=== PATIENT | female | born 1970 | race Two or more races ===

== ENCOUNTER 2025-02-17 21:01 | Emergency (ER) | payer MEDICAID, SELFPAY ==
--- NOTE | 2025-02-17 21:06 | EKG_ITS ---
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: : 1970 Requested By: ED Temporary Provider Order Number: [id number] Reading MD: ED Temporary Provider Measurements Intervals [place] Rate: 109 P: 19 OK: 152 QRS: -32 QRSD: 79 T: 42 QT: 333 QTc: 450 Interpretive Statements SINUS TACHYCARDIA POSSIBLE LEFT ATRIAL ENLARGEMENT [-0.1mV P-WAVE IN V1/V2] LEFT AXIS DEVIATION [QRS AXIS < -30] LOW QRS VOLTAGE IN PRECORDIAL LEADS [QRS DEFLECTION < 1.0 mV IN CHEST LEADS] ANTEROSEPTAL MYOCARDIAL INFARCTION , OF INDETERMINATE AGE [40+ ms Q WAVE IN V1-V4] Compared to ECG 06/15/2023 12:58:18 Sinus rhythm no longer present Myocardial infarct finding still present /store/S0/[id number].pdf
[2025-02-17 21:28] VITALS: BP 124/89; PULSE 110; RESP 15; TEMP 37.4; O2SAT 98
--- NOTE | 2025-02-17 21:46 | XR_ITS ---
Examination: PA chest single view TECHNIQUE: Upright PA chest single view INDICATIONS: Right-sided chest pain beginning 2 days ago Exam date and time: February 17, 2025 2152 hours FINDINGS: Normal heart size No pneumothorax No pneumonia or pulmonary edema The osseous structures are intact IMPRESSION: No active disease
--- NOTE | 2025-02-17 21:47 | PD.EDRME ---
Rapid Medical Screening Exam [facility] Arrival date/time: 02/17/25 21:01 54F with history of DM, HTN, and anxiety presents to ED with 2 days of R-sided CP, dizziness, and possible dysuria. Patient denies URI symptoms. Chief Complaint: Chest Pain Vital signs: Vital Signs Temperature 99.3 F 02/17/25 21:28 Pulse Rate 110 H 02/17/25 21:28 Respiratory Rate 15 02/17/25 21:28 Blood Pressure 124/89 H 02/17/25 21:28 Pulse Oximetry (%) 98 02/17/25 21:28 Oxygen Delivery Method Room Air 02/17/25 21:28
[2025-02-17 22:15] LABS: Collection Type, Urine Clean Catch
[2025-02-17 22:16] LABS: Basophils % (Auto) 0 % (0-2.5); Eosinophils % (Auto) 0 % (0-10); Hematocrit 41.5 % (36.0-46.0); Hemoglobin 14.8 g/dL (12.0-16.0); Immature Granulocytes % (Auto) 0 % (0-0); Immature Granulocytes Auto 0.05 Thou/mm3 (0.00-0.00); Lymphocytes % (Auto) 8 % (10-50); Mean Corpuscular HGB Conc 35.7 g/dl (31.0-37.0); Mean Corpuscular Hemoglobin 30.1 pg (25.0-35.0); Mean Corpuscular Volume 85 fL (80-100); Monocytes # (Auto) 0.5 Thou/mm3 (0.0-0.8); Monocytes % (Auto) 3 % (0-12); Neutrophils # (Auto) 12.1 Thou/mm3 (1.8-7.7); Neutrophils % (Auto) 88 % (37-80); Nucleated Red Blood Cell % 0 /100 WBC (0); Platelet Count 370 Thou/mm3 (140-440); RDW Standard Deviation 36.1 fL (36.4-46.3); Red Blood Count 4.91 Miln/mm3 (4.00-5.20); White Blood Count 13.7 Thou/mm3 (3.6-11.0)
[2025-02-17 22:21] LABS: Bacteria,Urine Rare; Bilirubin,Urine Negative (Negative); Blood,Urine Negative (Negative); Clarity,Urine Clear (Clear/Hazy); Color,Urine Lt-Yellow (Lt Yel-Yel); Culture Indicated,Urine Not Indicated; Glucose, Urine 4+ (Negative); Ketones,Urine 4+ (Negative); Leukocyte Esterase,Urine Negative (Negative); Nitrite,Urine Negative (Negative); PH,Urine 5.5 (5.0-7.0); Protein,Urine Trace (Neg - Trace); RBC,Urine 4 /hpf (0-3); Specific Gravity,Urine 1.038 (1.001-1.035); Squamous Epithelial Cell,Urine 3 /hpf (0-5); Urobilinogen,Urine Negative mg/dL (0.0-1.0); WBC,Urine 5 /hpf (0-5)
[2025-02-17 22:25] VITALS: BP 145/77; PULSE 107; RESP 20; TEMP 37.4; O2SAT 95
[2025-02-17 22:34] LABS: B-Type Natriuretic Peptide < 20 pg/mL (0-100)
[2025-02-17 22:36] LABS: Alanine Aminotransferase 19 U/L (10-49); Albumin, Serum 4.3 gm/dL (3.5-5.0); Albumin/Globulin Ratio 1.9 (1.2-2.2); Alkaline Phosphatase 87 U/L (46-116); Anion Gap 9 (7-16); Aspartate Amino Transferase 20 U/L (0-34); BUN/Creatinine Ratio 18 Ratio (12-20); Blood Urea Nitrogen 11 mg/dL (9-23); Calcium 8.5 mg/dL (8.3-10.6); Calcium (Corrected) 8.5 mg/dL (8.5-10.1); Carbon Dioxide 24.9 mMol/L (20.0-31.0); Chloride 99 mMol/L (98-107); Creatinine (Component) 0.6 mg/dL (0.6-1.3); Globulin 2.3 gm/dL (2.3-3.5); Glucose 284 mg/dL (74-106); Osmolality,Calculated 275 (275-295); Potassium 3.8 mMol/L (3.4-5.1); Sodium 133 mMol/L (136-145); Total Protein 6.6 gm/dL (5.7-8.2); Troponin I < 0.002 ng/mL (0.0-0.045); eGFR > 60 See Note
--- NOTE | 2025-02-18 00:17 | PD.EDABDPN ---
ED Abdominal Pain RME/HPI General Chief Complaint: Chest Pain Stated complaint: RIGHT CHEST /RIGHT ABD AREA PAIN , SOB Arrival date/time: 02/17/25 21:01 RME / HPI RME / HPI narrative: 02/17/25 21:01 54F with history of DM, HTN, and anxiety presents to ED with 2 days of R-sided CP, dizziness, and possible dysuria. Patient denies URI symptoms. DR. THOMSON MAIN ED EVALUATION: 54 y/o female with Hx of Diverticulitis and Diabetes Mellitus Type 2 presents to ED c/o intermittent RLQ abdominal pain and weakness x 1 week. Also reports loss of appetite, nausea, vomiting, and change in bowel movements x 1 day. She had dysuria 4 days ago but has since resolved. Denies abdominal surgeries in the past and international travel. Admits to sick contacts at her confucianism some time ago. Denies runny nose, hematuria, and chest pain. Also denies drugs, alcohol use, and smoking. No other concerns or complaints expressed at this time. Related Data Home Medications ?Medication ?Instructions ?Recorded ?Confirmed sitagliptin phosphate 50 1 tab PO BID 06/02/19 05/24/22 mg-metformin 1,000 mg tablet (Janumet) empagliflozin 10 mg tablet 10 mg PO QDAY 05/24/22 05/24/22 (Jardiance) semaglutide 0.25 mg or 0.5 mg (2 0.25 mg subcut QWEEK 05/24/22 05/24/22 mg/1.5 mL) subcutaneous pen injector (Ozempic) Previous Rx's ?Medication ?Instructions ?Recorded meloxicam 7.5 mg tablet 7.5 mg PO QDAY #10 tabs 06/15/23 Allergies Allergy/AdvReac Type Severity Reaction Status Date / Time No Known Allergies Allergy Verified 02/17/25 21:03 Review of Systems Review of Systems Systems Reviewed: All systems reviewed, normal except as documented Past Medical History Past Medical History CARDIAC: Positive Cardiac Disorders, Hypercholesterolemia and Hypertension GASTROINTESTINAL: Positive Gastrointestinal Disorders and Diverticulitis ENDOCRINE: Positive Diabetes Mellitus Type 2 ED Exam Narrative Physical exam: GEN. APPEARANCE: The patient is alert awake oriented X-3 in no distress, lying down comfortably, appears ill, but not toxic. Patient has good eye contact. Patient is cooperative. VITALS: All vitals were reviewed and the pulse ox is 95% on room air which is normal according to my interpretation. HEENT: Normocephalic, atraumatic. Pupils are equal and reactive. Oral mucosa is moist. Patent Nares NECK: Supple, nontender, no thyromegaly, no meningismus, no JVD CHEST: Symmetrical, atraumatic, and with equal expansion , Nontender on palpation no deformity and no crepitus. CARDIOVASCULAR: Heart regular rhythm no murmur or gallop rub or extra beats. LUNGS: Clear to auscultation bilaterally with symmetrical chest rise. No laboring tachypnea or wheezing. No intercostal subcostal retraction. No rales and no rhonchi. ABDOMEN: Soft, flat, nontender to palpation, no guarding or rebound tenderness. There are no abnormal masses palpated. Active and normal bowel sounds. EXTREMITIES: Nontender. No edema. No cyanosis. Patient is able to move all 4 extremities well, with full ROM and good CSM. SKIN: Warm and dry, no jaundice or rashes noted. MUSCULOSKELETAL: BL upper scapular TTP. NEURO: Patient is TALAMANTES x 4, Cranial nerves II through XII grossly intact. There is no focal neurologic deficits noted. GCS is 15, PNS and [employer] HAND appear grossly intact. PSYCHIATRIC: Patient is in normal mood and affect. Course Course Course Narrative: CXR is ordered for determining the etiology of chest pain. Quality Measures none Orders Category Date Time Status CT Screening NOW Care 02/18/25 00:29 Active EKG (ED ONLY) *Do not use* NOW Care 02/17/25 21:06 Completed IV [Insert IV] STAT Care 02/17/25 22:[address] abdomen pelvis w con Stat Exams 02/18/25 00:29 Taken EKG (ED Only) Stat Exams 02/17/25 21:06 Draft KUB [XR abdomen 1V] Stat Exams 02/18/25 00:18 Taken US pelvic complete Stat Exams 02/18/25 05:09 Ordered XR chest 1V portable Stat Exams 02/17/25 21:46 Completed B-Type Natriuretic Peptide Stat Lab 02/17/25 22:10 Completed CBC Stat Lab 02/17/25 22:10 Completed Comprehensive Metabolic Panel Stat Lab 02/17/25 22:10 Completed HCG Qualitative,Urine Stat Lab 02/17/25 22:03 Completed Troponin I Stat Lab 02/17/25 22:10 Completed Urinalysis, C/S if Indicated Stat Lab 02/17/25 22:03 Completed Ondansetron Inj [Zofran Inj] Med 02/18/25 00:19 Discontinued 4 mg IVP X1 ONE Ringers Lactated 1000 ml [Lactated Ringers] 1,000 ml Med 02/18/25 00:18 Discontinued IV 999 mls/hr cefTRIAXone/D5w 1gm IV premix [Rocephin/D5w 1gm IV Med 02/18/25 05:12 Discontinued premix] 1 gm in 50 ml IV X1 metroNIDAZOLE/NS 500 MG IVPB [Flagyl 500 mg IV] Med 02/18/25 05:12 Discontinued 500 mg in 100 ml IV NOW Vital Signs Vital signs: Vital Signs Temperature 99.3 F 02/17/25 21:28 Pulse Rate 110 H 02/17/25 21:28 Respiratory Rate 15 02/17/25 21:28 Blood Pressure 124/89 H 02/17/25 21:28 Pulse Oximetry (%) 98 02/17/25 21:28 Oxygen Delivery Method Room Air 02/17/25 21:28 Abdominal Pain MDM MDM Narrative MDM Narrative:: Scribe Attestation: Melinda Cox am scribing for and in the presence of Dr. Thomson. Provider Notation: Although this document has been carefully reviewed, there may still be some phonetic and other typographical errors.? These errors are purely grammatical due to imperfections in the software program and should not be construed in any way to? compromise the substance of the patient's medical care during this visit. Patient is a 52-year-old female to the [facility] with concerns for right lower quadrant abdominal pain. Vital signs and exam as above. Concern for constipation, appendicitis, diverticulitis, pancreatitis among others. Ordered labs, KUB as well as CT abdomen pelvis with contrast. 0004: WBC 13.7 with 88% left shift. No significant metabolic abnormality Hyperglycemic with glucose of 284. Anion Gap unremarkable. Troponin not elevated. Urine glucose and ketones present with RBC and rare bacteria. CXR is normal. 5:14a on reevaluation patient hemodynamically stable not in distress. CT abdomen pelvis shows diverticulitis, antibiotics provided. Patient also with constipation. Also has an ovarian cyst, pelvic ultrasound ordered. Also concern for possible early bowel obstruction versus enteritis. At this time patient abdomen soft nondistended nontender, no rebound or guarding, patient is having bowel movements and passing gas, less likely bowel obstruction at this time. 0600: Care assumed by Dr. Berg (emergency physician). Past medical, surgical, social and family history reviewed. Vitals and home medications reviewed. Results and treatment plan discussed. They will assume the care of the patient at this time and will follow the patient, pending US and Abdomen x-ray. Patient data External records reviewed:: [facility] previous records (Reviewed prior ED records from 11/26/23. Patient was seen for Chipped tooth.) Clinical information provided by:: patient Social determinants that could affect healthcare access:: none Patient has the following chronic illnesses:: Hypercholesterolemia, Hypertension, Diverticulitis, Diabetes Mellitus Type 2 How is presenting disease/condition affected by chronic disease/condition?: exacerbated by Evaluation data The following diagnostics were reviewed and interpreted by me:: lab results, radiology exam(s) and EKG tracing(s) (EKG done at 2132, sinus tachycardia, rate of 109, normal intervals, non-specific T-wave changes, not cardiac alert.) Lab and/or radiology exams considered but not ordered:: None Interpretation Summary: RADIOLOGY Chest X-Ray: FINDINGS: Normal heart size No pneumothorax No pneumonia or pulmonary edema The osseous structures are intact IMPRESSION: No active disease Abdomen/Pelvis CT: Findings: The lung bases are clear. The gallbladder, pancreas, spleen, kidneys and adrenals are unremarkable. Hepatomegaly Dilated small bowel loops measuring up to 3.3 cm with air-fluid levels within and transition point in the left abdomen. Diverticulosis of the colon. Thickening of the descending colon associated with mild peripheral fat stranding. The appendix is within normal limits. There is no mesenteric or retroperitoneal adenopathy. The urinary bladder is unremarkable. There is no free fluid or free air. The osseous structures are unremarkable. Left ovarian cystic lesion measuring 2.5 cm. Impression: Descending colon findings are compatible with diverticulitis versus colitis. Small bowel findings are compatible with enteritis versus developing small bowel obstruction. No evidence of appendicitis. Left ovarian cystic lesion, probably functional. Consider correlation with pelvic ultrasound if clinically indicated. Hepatomegaly. KUB X-Ray: Pending official radiology report. Medications / Prescriptions Medications or Prescriptions considered but not ordered:: None Medication administrations:: Medication Administration History Discontinued Medications Lactated Ringer's (Lactated Ringers) 1,000 mls @ 999 mls/hr IV .Q1H1M ONE Stop: 02/18/25 01:18 Last Infusion: 02/18/25 02:12 Dose: Infused Documented By: Admin: 02/18/25 01:05 Dose: 999 mls/hr Documented By: SALAZAR Ceftriaxone Sodium/Dextrose (Rocephin/D5w 1gm Iv Premix) 1 gm in 50 mls @ 100 mls/hr IV X1 ONE Stop: 02/18/25 05:41 Last Admin: 02/18/25 05:46 Dose: 100 mls/hr Documented By: SALAZAR Metronidazole (Flagyl 500 Mg Iv) 500 mg in 100 mls @ 200 mls/hr IV NOW ONE Stop: 02/18/25 05:41 Last Admin: 02/18/25 05:46 Dose: 200 mls/hr Documented By: SALAZAR Ondansetron HCl (Ondansetron Inj 2 Mg/Ml Inj 2 Ml) 4 mg IVP X1 ONE; Protocol Stop: 02/18/25 00:20 Last Admin: 02/18/25 01:04 Dose: 4 mg Documented By: SALAZAR See above if any Consultations Consultation(s) initiated? (list below): No Diagnosis Differential diagnosis abdominal pain: abdominal pain, acute appendicitis, calculus of kidney, constipation, diverticulitis, gastroenteritis, pancreatitis and small bowel obstruction Most likely diagnosis given after review of the tests above:: Diverticulitis, Leukcytosis, RLQ abdominal pain, Constipation Admission Indicated Admission indicated?: not indicated Explain why admission is indicated or not indicated:: Pending US and final disposition from oncoming ED physician. Admission Request Was there a request for admission?: No Disposition Plan Disposition Plan: other (specify) (Signed-out t Dr. Berg at 6 AM.) Discharge Plan Prescriptions/Referrals Prescriptions/Med Rec: No Action Janumet 50-1,000 mg Tablet 1 tab PO BID Jardiance 10 mg Tablet 10 mg PO QDAY Ozempic 0.25 mg or 0.5 mg(2 mg/1.5 mL) Pen Injector 0.25 mg SUBCUT QWEEK Rx Instructions: for 4 doses meloxicam 7.5 mg tablet 7.5 mg PO QDAY Qty: 10 0RF Referrals: No Primary/Family,Physician [Primary Care Provider] - In 1 week Problem List Clinical Impression: Right lower quadrant abdominal pain, Leukocytosis, Constipation, Diverticulitis Patient/Caregiver Discharge Instructions Print Language: Maori
--- NOTE | 2025-02-18 00:18 | XR_ITS ---
Examination: Abdomen AP single view Technique: AP portable supine abdomen, single view Exam date and time: February 18, 2025 0112 hours INDICATIONS: Right lower abdominal pain beginning one week ago FINDINGS: Moderate stool throughout the colon No obstruction Minimal small bowel ileus IMPRESSION: Nonobstructive bowel gas pattern
--- NOTE | 2025-02-18 00:29 | XR_ITS ---
Examination: CT abdomen with intravenous contrast CT pelvis with intravenous contrast 2-D coronal reconstructions 2-D sagittal reconstructions Date and time of exam:February 18, 2025 at 0259 hours Comparison December 12, 2021 INDICATIONS: Onset abdominal pain today. CTDI: vol (mGy) 10.7 DLP: (mGycm) 617 Technique: Multiple axial sections of the abdomen and pelvis have been obtained. 64 slice high-resolution scanner used. 3 mm axial sections have been obtained, post intravenous injection of 60 cc of Isovue 370 2-D sagittal, coronal reconstructions obtained. Low dose protocols were performed. One or more of the following dose reduction techniques were used; automated exposure control, adjustment of the mA and/or KV according to patient size, use of iterative reconstruction technique. Findings: Hepatomegaly 19 cm with fatty infiltration no focal liver lesions No splenic pancreatic or adrenal mass No renal or ureteral calculi Multiple fluid distended small bowel loops in the upper abdomen Abdominal aorta normal size Normal appendix Extensive colonic diverticulosis There is mild inflammatory change about the diverticula in the descending colon, coronal and 72 with wall thickening of the descending colon Anteverted uterus Urinary bladder intact 25 mm anterior left pelvic cyst IMPRESSION: Mild inflammatory change about the diverticula in the descending colon with wall thickening of the descending colon, differential would include mild diverticulitis, underlying tumor in the descending colon not excluded, consider colonoscopy follow-up No pelvic abscess 25 mm anterior left pelvic cyst
[2025-02-18 00:58] LABS: HCG Qualitative,Urine Negative
[2025-02-18 01:01] VITALS: BP 127/71; PULSE 107; RESP 16; TEMP 37.1; O2SAT 97
[2025-02-18] MEDS: ONDANSETRON INJ 2 MG/ML INJ 2 ML 4 MG IVP (01:04)
[2025-02-18] MEDS: RINGERS LACTATED 1000 ML 1,000 ML 999 ML IV (01:05)
[2025-02-18 04:39] VITALS: BP 142/92; PULSE 100; RESP 16; TEMP 37; O2SAT 98
--- NOTE | 2025-02-18 05:04 | PRELIM_ITS ---
CT scan of the abdomen and pelvis with intravenous contrast (axial sections with sagittal and coronal reformats) February 18, 2025 0259 hours Clinical History: appendicitis Comparison: None Findings: The lung bases are clear. The gallbladder, pancreas, spleen, kidneys and adrenals are unremarkable. Hepatomegaly Dilated small bowel loops measuring up to 3.3 cm with air-fluid levels within and transition point in the left abdomen. Diverticulosis of the colon. Thickening of the descending colon associated with mild peripheral fat stranding. The appendix is within normal limits. There is no mesenteric or retroperitoneal adenopathy. The urinary bladder is unremarkable. There is no free fluid or free air. The osseous structures are unremarkable. Left ovarian cystic lesion measuring 2.5 cm. Impression: Descending colon findings are compatible with diverticulitis versus colitis. Small bowel findings are compatible with enteritis versus developing small bowel obstruction. No evidence of appendicitis. Left ovarian cystic lesion, probably functional. Consider correlation with pelvic ultrasound if clinically indicated. Hepatomegaly. Report Electronically Signed By: Neptali Esquivel 02/18/2025 5:03:35 AM [EST]
--- NOTE | 2025-02-18 05:09 | XR_ITS ---
Examination: Pelvic ultrasound, transabdominal, complete Technique: Transabdominal ultrasound of the pelvis performed using grayscale imaging Date and time of exam: February 18, 2025 0603 hours INDICATIONS: Pelvic pain several months FINDINGS: Uterus 10.7 cm endometrial stripe 11 mm No uterine mass Right ovary 2.5 cm arterial flow Left ovary 4.1 cm arterial flow 24 x 19 x 20 mm cyst IMPRESSION: Simple left ovarian cyst 24 x 19 x 20 mm
[2025-02-18] MEDS: cefTRIAXone/D5w 1gm IV premix 1 GM/50 ML BAG IV (05:46)
[2025-02-18] MEDS: metroNIDAZOLE/NS 500 MG IVPB 500 MG/100 ML BAG 200 MG IV (05:46)
--- NOTE | 2025-02-18 06:37 | PD.EDADDENDU ---
Emergency Room Addendum <Sri Rondon - Last Filed: 02/18/25 06:49> Addendum Narrative: At 6 AM on 02/18/2025, the care of the patient was transferred from Dr. Trinh, see her notes for complete H&P and ED course. I reviewed all diagnostic test results: My interpretation of the EKG is Sinus tachycardia, [address]-T changes.? Nuno Berg MD My interpretation of the chest x-ray is no active disease. My interpretation of the abdomen/pelvis CT report is diverticulitis versus colitis, no evidence of appendicitis. Blood tests and urine tests At this point, diagnoses include diverticulitis. Treatment here included Zofran, IV fluids, Rocephin, and Flagyl. Based on my best medical judgment, made decision no further evaluation or treatment indicated at this time.? Patient understands and agrees to the discharge instructions customized and printed, see below. Discharge instructions from Dr. Berg: 1. After evaluation, your symptoms are due to diverticulitis.? Infection of your colon. 2. Take cefdinir and Flagyl for the infection. 3. Zofran for nausea/vomiting. 4. Tyleno with l codeine for severe pain. 5. Clear liquid diet for 24 hours then advance as tolerated. 6. To prevent dehydration, increase oral fluid and maintain clear urine.? If dark or yellow, increase oral fluid. 7. See a private doctor on 02/20/2025 for recheck and further care. Ask to review all test results and official radiology reports, to make sure you receive all necessary follow-ups and monitoring, including the final and official pelvic ultrasound report. To make sure there is no serious intra-abdominal condition, ask for help with more investigation not available here in the ER.? Such as EGD or scoping the stomach, colonoscopy or scoping the colon, and referral to see grocery checker. 8. Read attached handout.? Seek immediate medical care with worsening, fever, or with any concerns. Instrucciones de anita del Dr. Berg: 1. Tras la evaluaci?n, heladio s?ntomas se deben a diverticulitis. Infecci?n del colon. 2. [place] cefdinir y Flagyl para la infecci?n. 3. Zofran para las n?useas y los v?mitos. 4. Tyleno con l-code?na para el dolor intenso. 5. Dieta de l?quidos marva rosalee 24 horas y luego aumente la dosis seg?n la tolerancia. 6. Para prevenir la deshidrataci?n, aumente la ingesta de l?quidos y mantenga la orina david. Si la orina es oscura o amarilla, aumente la ingesta de l?quidos. 7. Consulte con un m?dico particular el 20/02/2025 para nuria nueva revisi?n y atenci?n adicional. Solicite la revisi?n de todos los resultados de las pruebas y los informes radiol?gicos oficiales para asegurarse de recibir todos los seguimientos y la monitorizaci?n necesarios, incluido el informe final y oficial de la ecograf?a p?lvica. Para asegurarse de que no haya nuria afecci?n intraabdominal grave, solicite ayuda con otras pruebas que no est?n disponibles en urgencias. [place]ee EGD o endoscopia g?strica, colonoscopia o endoscopia de colon, y derivaci?n a un gastroenter?logo. 8. Ernestina el folleto adjunto. Busque atenci?n m?dica inmediata si presenta empeoramiento, fiebre o cualquier inquietud. Nuno Berg MD <Nuno Berg MD - Last Filed: 02/18/25 06:50> Addendum Narrative: At 6 AM on 02/18/2025, the care of the patient was [place], see her notes for complete H&P and ED course. I reviewed all diagnostic test results: At this point, diagnoses include diverticulitis. Treatment here included Zofran, IV fluids, Rocephin, and Flagyl. Based on my best medical judgment, made decision no further evaluation or treatment indicated at this time.? Patient understands and agrees to the discharge instructions customized and printed, see below. Discharge instructions from Dr. Berg: 1. After evaluation, your symptoms are due to diverticulitis.? Infection of your colon. 2. Take cefdinir and Flagyl for the infection. 3. Zofran for nausea/vomiting. 4. Tyleno with l codeine for severe pain. 5. Clear liquid diet for 24 hours then advance as tolerated. 6. To prevent dehydration, increase oral fluid and maintain clear urine.? If dark or yellow, increase oral fluid. 7. See a private doctor on 02/20/2025 for recheck and further care. Ask to review all test results and official radiology reports, to make sure you receive all necessary follow-ups and monitoring, including the final and official pelvic ultrasound report. To make sure there is no serious intra-abdominal condition, ask for help with more investigation not available here in the ER.? Such as EGD or scoping the stomach, colonoscopy or scoping the colon, and referral to see grocery checker. 8. Read attached handout.? Seek immediate medical care with worsening, fever, or with any concerns. Instrucciones de anita del Dr. Berg: 1. Tras la evaluaci?n, heladio s?ntomas se deben a diverticulitis. Infecci?n del colon. 2. [place] cefdinir y Flagyl para la infecci?n. 3. Zofran para las n?useas y los v?mitos. 4. Tyleno con l-code?na para el dolor intenso. 5. Dieta de l?quidos marva rosalee 24 horas y luego aumente la dosis seg?n la tolerancia. 6. Para prevenir la deshidrataci?n, aumente la ingesta de l?quidos y mantenga la orina david. Si la orina es oscura o amarilla, aumente la ingesta de l?quidos. 7. Consulte con un m?dico particular el 20/02/2025 para nuria nueva revisi?n y atenci?n adicional. Solicite la revisi?n de todos los resultados de las pruebas y los informes radiol?gicos oficiales para asegurarse de recibir todos los seguimientos y la monitorizaci?n necesarios, incluido el informe final y oficial de la ecograf?a p?lvica. Para asegurarse de que no haya nuria afecci?n intraabdominal grave, solicite ayuda con otras pruebas que no est?n disponibles en urgencias. [place] EGD o endoscopia g?strica, colonoscopia o endoscopia de colon, y derivaci?n a un gastroenter?logo. 8. Ernestina el folleto adjunto. Busque atenci?n m?dica inmediata si presenta empeoramiento, fiebre o cualquier inquietud. Nuno Berg MD
[2025-02-18 06:56] VITALS: BP 138/76; PULSE 80; RESP 18; TEMP 37.2; O2SAT 98
== END 2025-02-18 06:58 | disposition home or self-care (01) ==
PROVIDERS: Physician Assistant; Emergency Provider Emergency Medicine
DX: K57.32 Diverticulitis of large intestine without perforation or abscess without bleeding (principal); K59.00 Constipation, unspecified; D72.829 Elevated white blood cell count, unspecified; K56.7 Ileus, unspecified; N94.89 Other specified conditions associated with female genital organs and menstrual cycle; N83.202 Unspecified ovarian cyst, left side; R16.0 Hepatomegaly, not elsewhere classified; E11.9 Type 2 diabetes mellitus without complications; I10 Essential (primary) hypertension; F41.9 Anxiety disorder, unspecified
CPT/HCPCS: 36415; 71045; 74018; 74177; 76856; 80053; 81001; 81025; 83880; 84484; 85025; 93005; 96361; 96365; 96368; 96375; 99285; A4649; J0696; J2405; J3490; J7120; Q9967; J1836

== ENCOUNTER 2025-06-10 01:33 | Emergency (ER) | payer SELFPAY ==
[2025-06-10] VITALS (7 sets, daily range): BP systolic 90–156; BP diastolic 51–96; PULSE 77–89; RESP 14–21; TEMP 36.4–36.8; O2SAT 95–100; BMI 31.8
--- NOTE | 2025-06-10 01:44 | EDNOTE_ITS ---
<Statement entered by Donna Melvin MD - 06/22/25 14:16> As co-signing physician, I was present and available for consult prn. I concur with the plan and care as documented by the midlevel provider. Nausea/Vomit./Diarrhea-RME/HPI General Chief complaint: Abdominal Pain Stated complaint: ABD PAIN Time Seen by Provider: 06/10/25 01:42 Arrival date/time: 06/10/25 01:33 54F with history of HTN and DM presents to ED with 1 hour of epigastric pain, N/V, and non-bloody diarrhea after she ate some seafood. Limitations: no limitations Related Data Home Medications ?Medication ?Instructions ?Recorded ?Confirmed sitagliptin phosphate 50 1 tab PO BID 06/02/19 mg-metformin 1,000 mg tablet (Janumet) empagliflozin 10 mg tablet 10 mg PO QDAY 05/24/2205/05 (Jardiance) semaglutide 0.25 mg or 0.5 mg (2 0.25 mg subcut QWEEK 05/24/22 05/24/22 mg/1.5 mL) subcutaneous pen injector (Ozempic) Previous Rx's ?Medication ?Instructions ?Recorded meloxicam 7.5 mg tablet 7.5 mg PO QDAY #10 tabs 06/03 11/23 acetaminophen 300 mg-codeine 30 mg 2 tab PO Q8H PRN pa in #20 tabs 02/18/25 tablet cefdinir 300 mg capsule 300 mg PO BID #14 caps 02/18 Allergies Allergy/AdvReac Type Severity Reaction Status Date / Time No Known Allergies Allergy Verified 02/17/25 21:03 Review of Systems Review of Systems Systems Reviewed: All systems reviewed, normal except as documented Gastrointestinal Gastrointestinal: Reports as per HPI, Reports abdominal pain, Reports diarrhea and Reports nausea Past Medical History Past Medical History NEUROLOGIC: Negative Neurological Disorders or Seizures CARDIAC: Positive Hypercholesterolemia and Hypertension; Negative Cardiac Disorders or Congestive Heart Failure RESPIRATORY: Negative Chronic Obstructive Pulmonary Disease (COPD) or Asthma GASTROINTESTINAL: Positive Gastrointestinal Disorders and Diverticulitis GENITOURINARY: Negative Genitourinary Disorders or Renal Disease MUSCULOSKELETAL: Negative Musculoskeletal Disorders ENDOCRINE: Negative Diabetes Mellitus Type 1 or Diabetes Mellitus Type 2 HEMATOLOGIC: Negative Blood Disorders or Sickle Cell Disease OTHER HISTORY: Negative Autoimmune Disease, Blood Transfusions, Anesthesia Reactions, MRSA, Clostridium Difficile or Cancer Social History SMOKING STATUS: Never smoker ED Exam General Limitations: Present no limitations General appearance: Present alert and in distress Head Head exam: Present atraumatic Neck Neck exam: Present normal inspection, full ROM and trachea midline Chest Chest inspection: Present normal inspection and symmetric chest wall rise Abdominal Exam Abdominal exam: Present soft Abdominal tenderness: Present epigastrium Neurological Exam Neurological exam: Present alert and oriented X3 Psychiatric Psychiatric exam: Present normal affect and normal mood Skin Skin exam: Present warm, dry, intact and normal color Course Quality Measures none Orders Category Date Time Status CT Screening NOW Care 06/10/25 05:46 Completed Inspector Barrel Q4H START 00 Care 06/10/25 05:44 Completed EKG (ED ONLY) *Do not use* NOW Care 06/10/25 03:28 Completed Insert IV NOW Care 06/10/25 05:43 Completed Orthostatic Vitals NOW Care 06/10/25 05:[address] chest abdomen pelvis w Stat Exams 06/10/25 05:44 Completed EKG (ED Only) Stat Exams 06/10/25 03:28 Draft US gall bladder Stat Exams 06/10/25 03:28 Completed CBC Stat Lab 06/10/25 03:47 Completed CMP [Comprehensive Metabolic Panel] Stat Lab 06/10/25 03:47 Completed Drug Screen,Urine Stat Lab 06/10/25 03:45 Completed HCG Qualitative,Urine Stat Lab 06/10/25 03:45 Completed Lactate (Lactic Acid) Stat Lab 06/10/25 03:47 Completed Lipase Stat Lab 06/10/25 03:47 Completed Procalcitonin Stat Lab 06/10/25 03:47 Completed Troponin I Stat Lab 06/10/25 03:47 Completed Troponin I Stat Lab 06/10/25 07:45 Completed Urinalysis, C/S if Indicated Stat Lab 06/10/25 03:45 Completed Ketorolac Inj [Toradol Inj] Med 06/10/25 03:29 Discontinued 60 mg IM X1 ONE Morphine* Inj Med 06/10/25 01:43 Discontinued 4 mg IM X1 ONE Ondansetron Odt [Zofran Odt] Med 06/10/25 01:43 Discontinued 4 mg PO X1 ONE Sodium Chloride 0.9% 1000 ml [Ns] 1,000 ml Med 06/10/25 05:43 Discontinued IV 999 mls/hr Sodium Chloride 0.9% 1000 ml [Ns] 1,000 ml Med 06/10/25 05:47 Discontinued IV 999 mls/hr Vital Signs Vital signs: Vital Signs Temperature 97.6 F 06/10/25 01:39 Pulse Rate 87 06/10/25 01:39 Respiratory Rate 17 06/10/25 01:39 Blood Pressure 156/96 H 06/10/25 01:39 Pulse Oximetry (%) 98 06/10/25 01:39 Oxygen Delivery Method Room Air 06/10/25 01:39 O2 at 98% on RA and WNLs Nausea/Vomiting/Diarrhea MDM Narrative MDM Narrative:: 54F with history of HTN and DM presents to ED with 1 hour of epigastric pain, N/V, and non-bloody diarrhea after she ate some seafood. Physical exam reveals mild epigastric tenderness, but patient appears to be in pain. Patient is afebrile and alert. EKG is NSR. Minimal leukocytosis. CMP unremarkable. Lipase normal. Trop normal. UA unremarkable. HCG neg. Tox screen opioids, but was done after morphine given here. Procal/lactate normal. Telerad US gallbladder unremarkable. Upon reassessment, morphine did improve pain much, but Toradol did. Patient felt ready to go home, but repeat VS showed hypotension. Care signed out to Dr. Melvin pending CT, repeat trop, and dispo. Patient eventually discharged. Patient data External records reviewed:: [facility] previous records Clinical information provided by:: patient Social determinants that could affect healthcare access:: mental health Patient has the following chronic illnesses:: DM and HTN How is presenting disease/condition affected by chronic disease/condition?: uneffected by Evaluation data The following diagnostics were reviewed and interpreted by me:: lab results, radiology exam(s) and EKG tracing(s) Lab and/or radiology exams considered but not ordered:: ordered Interpretation Summary: above Medications / Prescriptions Medications / Prescriptions considered but not ordered:: ordered Medication administrations:: Medication Administration History Discontinued Medications Sodium Chloride (Ns) 1,000 mls @ 999 mls/hr IV .Q1H1M ONE Stop: 06/10/25 06:43 Last Infusion: 06/10/25 07:35 Dose: Infused Documented By: Admin: 06/10/25 05:56 Dose: 999 mls/hr Documented By: SALAZAR Sodium Chloride (Ns) 1,000 mls @ 999 mls/hr IV .Q1H1M ONE Stop: 06/10/25 06:47 Last Infusion: 06/10/25 07:35 Dose: Infused Documented By: Admin: 06/10/25 05:57 Dose: 999 mls/hr Documented By: SALAZAR Ketorolac Tromethamine (Ketorolac Inj 60 Mg/2 Ml Vial) 60 mg IM X1 ONE Stop: 06/10/25 03:30 Last Admin: 06/10/25 03:50 Dose: 60 mg Documented By: NERIS Morphine Sulfate (Morphine Sulf Inj 4 Mg/Ml Vial) 4 mg IM X1 ONE Stop: 06/10/25 01:44 Last Admin: 06/10/25 01:58 Dose: 4 mg Documented By: NERIS Ondansetron HCl (Ondansetron Odt 4 Mg Tabrap) 4 mg PO X1 ONE; Protocol Stop: 06/10/25 01:44 Last Admin: 06/10/25 01:59 Dose: 4 mg Documented By: NERIS above Consultations Consultation(s) initiated? (list below): No Diagnosis Nausea Differential Diagnosis: traveler's diarrhea, food poisoning, gastroenteritis, clostridium difficile infection, drug-induced nausea and vomiting, dehydration and other (ACS, pancreatitis, gastritis, ab pain, SBO, mesenteric ischemia, hernia) Most likely diagnosis given after review of the tests above:: enteritis Admission Indicated Admission indicated?: not indicated Admission Request Was there a request for admission?: No Disposition Plan Disposition Plan: Discharge Discharge Attestation Discharge Attestation: The patient and all family members were given an opportunity to ask questions and understood the discharge instructions. Discharge instructions specifically effects, indications for sooner follow up or return to the emergency department, and the expected course of current diagnosis. Patient condition: Stable Discharge Plan Plan Patient Disposition: HOME (Self Care) Prescriptions/Referrals Prescriptions/Med Rec: No Action Janumet 50-1,000 mg Tablet 1 tab PO BID Jardiance 10 mg Tablet 10 mg PO QDAY Ozempic 0.25 mg or 0.5 mg(2 mg/1.5 mL) Pen Injector 0.25 mg SUBCUT QWEEK Rx Instructions: for 4 doses meloxicam 7.5 mg tablet 7.5 mg PO QDAY Qty: 10 0RF acetaminophen-codeine 300-30 mg tablet 2 tab PO Q8H MDD 6 PRN (Reason: pain) Qty: 20 0RF cefdinir 300 mg capsule 300 mg PO BID Qty: 14 0RF Referrals: No Primary/Family,Physician [Primary Care Provider] - In 1 week Problem List Clinical Impression: Abdominal pain, Enteritis Patient/Caregiver Discharge Instructions Education Materials: ED Gastroenteritis, Noninfectious Print Language: Namibian Stand Alone Forms: Lida Award Info., Patient Portal Info Letter
[2025-06-10] MEDS: MORPHINE SULF INJ 4 MG/ML VIAL IM (01:58)
[2025-06-10] MEDS: ONDANSETRON ODT 4 MG TABRAP PO (01:59)
--- NOTE | 2025-06-10 03:28 | EKG_ITS ---
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: : 1970 Requested By: Kale Bahena Order Number: [id number] Reading MD: Kale Bahena Measurements Intervals [place] Rate: 72 P: 10 ND: 157 QRS: -27 QRSD: 79 T: 49 QT: 409 QTc: 449 Interpretive Statements SINUS RHYTHM LOW QRS VOLTAGE IN PRECORDIAL LEADS [QRS DEFLECTION < 1.0 mV IN CHEST LEADS] POSSIBLE ANTERIOR MYOCARDIAL INFARCTION , OF INDETERMINATE AGE [30 ms Q WAVE IN V3/V4, OR R < 0.2 mV IN V4] Compared to ECG 02/17/2025 21:32:17 Sinus tachycardia no longer present Left-axis deviation no longer present Myocardial infarct finding still present /store/S0/[id number]/ecg/[id number].pdf
--- NOTE | 2025-06-10 03:28 | XR_ITS ---
Examination: Abdomen sonogram, Limited Date and time of exam: June 10, 2025, 0355 hours INDICATIONS: Epigastric pain onset today. Technique: Real-time farris scale transabdominal sonographic images of the upper abdomen obtained. Findings: Gallbladder sludge Gallbladder wall 0.3 cm Common bile duct 0.3 cm Pancreatic head 2.6 cm Liver 16.3 cm fatty infiltration Normal hepatopetal portal venous flow Patent IVC IMPRESSION: Gallbladder sludge, negative for cholelithiasis, negative for cholecystitis
[2025-06-10] MEDS: KETOROLAC INJ 60 MG/2 ML VIAL IM (03:50)
[2025-06-10 03:52] LABS: Lactate (Lactic Acid) 1.2 mMol/L (0.4-2.0)
[2025-06-10 03:53] LABS: Collection Type, Urine Clean Catch
[2025-06-10 03:55] LABS: Basophils # (Auto) 0.1 Thou/mm3 (0.0-0.2); Basophils % (Auto) 0 % (0-2.5); Eosinophils # (Auto) 0.0 Thou/mm3 (0.0-0.5); Eosinophils % (Auto) 0 % (0-10); Hematocrit 44.3 % (36.0-46.0); Hemoglobin 14.5 g/dL (12.0-16.0); Immature Granulocytes Auto 0.05 Thou/mm3 (0.00-0.00); Lymphocytes # (Auto) 2.0 Thou/mm3 (1.0-4.8); Lymphocytes % (Auto) 17 % (10-50); Mean Corpuscular HGB Conc 32.7 g/dl (31.0-37.0); Mean Corpuscular Hemoglobin 29.2 pg (25.0-35.0); Mean Corpuscular Volume 89 fL (80-100); Monocytes # (Auto) 0.8 Thou/mm3 (0.0-0.8); Monocytes % (Auto) 7 % (0-12); Neutrophils # (Auto) 9.0 Thou/mm3 (1.8-7.7); Neutrophils % (Auto) 75 % (37-80); Nucleated Red Blood Cell # 0.00 Thou/mm3 (0.00-0.00); Nucleated Red Blood Cell % 0 /100 WBC (0); Platelet Count 386 Thou/mm3 (140-440); RDW Standard Deviation 39.5 fL (36.4-46.3); Red Blood Count 4.96 Miln/mm3 (4.00-5.20); White Blood Count 12.0 Thou/mm3 (3.6-11.0)
[2025-06-10 04:03] LABS: Amorphous Crystals,Urine Present (Absent); Bacteria,Urine Rare; Bilirubin,Urine Negative (Negative); Blood,Urine Negative (Negative); Clarity,Urine Clear (Clear/Hazy); Color,Urine Lt-Yellow (Lt Yel-Yel); Culture Indicated,Urine Not Indicated; Glucose, Urine 4+ (Negative); Hyaline Casts,Urine < 1 /hpf (0-1); Ketones,Urine Trace (Negative); Leukocyte Esterase,Urine Negative (Negative); Nitrite,Urine Negative (Negative); PH,Urine 6.0 (5.0-7.0); Protein,Urine 1+ (Neg - Trace); RBC,Urine < 1 /hpf (0-3); Specific Gravity,Urine 1.044 (1.001-1.035); Squamous Epithelial Cell,Urine 6 /hpf (0-5); Urobilinogen,Urine Negative mg/dL (0.0-1.0); WBC,Urine < 1 /hpf (0-5)
[2025-06-10 04:08] LABS: Amphetamine/Methamp Scrn,U Negative (Negative); Barbiturate Screen,Urine Negative (Negative); Benzodiazepines Screen,Urine Negative (Negative); Benzoylecgonine Screen, Ur Negative (Negative); Fentanyl Screen,Urine Negative (Negative); HCG Qualitative,Urine Negative; Opiate Screen,Urine Positive (Negative); THC Screen,Urine Negative (Negative)
[2025-06-10 04:27] LABS: Alanine Aminotransferase 25 U/L (10-49); Albumin, Serum 4.6 gm/dL (3.5-5.0); Albumin/Globulin Ratio 1.9 (1.2-2.2); Alkaline Phosphatase 81 U/L (46-116); Anion Gap 10 (7-16); Aspartate Amino Transferase 20 U/L (0-34); BUN/Creatinine Ratio 27 Ratio (12-20); Bilirubin,Total 0.5 mg/dL (0.3-1.2); Blood Urea Nitrogen 16 mg/dL (9-23); Calcium 9.2 mg/dL (8.3-10.6); Calcium (Corrected) 9.2 mg/dL (8.5-10.1); Carbon Dioxide 26.3 mMol/L (20.0-31.0); Chloride 104 mMol/L (98-107); Creatinine (Component) 0.6 mg/dL (0.6-1.3); Estimated Creatinine Clearance 111.0 mL/min (>60); Globulin 2.4 gm/dL (2.3-3.5); Glucose 299 mg/dL (74-106); Lipase 23 U/L (12-53); Osmolality,Calculated 291 (275-295); Potassium 3.8 mMol/L (3.4-5.1); Procalcitonin 0.15 ng/ml (0.0-0.49); Sodium 140 mMol/L (136-145); Total Protein 7.0 gm/dL (5.7-8.2); Troponin I < 0.002 ng/mL (0.0-0.045); eGFR > 60 See Note
--- NOTE | 2025-06-10 05:31 | PRELIM_ITS ---
Gallbladder ultrasound with Doppler. June 10, 2025 at 0355 hours Clinical history: Epigastric pain. Correlated with prior CT of March 20, 2025. Findings: Hepatomegaly. Liver steatosis. Debris within the gallbladder. Gallbladder sludge. No gallbladder calculus, wall thickening or pericholecystic fluid is identified. The common duct is normal in caliber at 2.8 mm. No free fluid is demonstrated on the submitted images. No abnormalities by Doppler. Impression: Debris and sludge within the gallbladder, acute cholecystitis cannot be excluded. Consider correlation with HIDA scan. Report Electronically Signed By: Neptali Esquivel 06/10/2025 5:30:24 AM [EST]
--- NOTE | 2025-06-10 05:44 | XR_ITS ---
Examination: CT chest with intravenous contrast CT abdomen with intravenous contrast CT pelvis with intravenous contrast 2-D coronal and sagittal reconstructions Time of exam: June 10, 2025, 0611 hours, comparison February 18, 2025 INDICATIONS: Onset chest pain abdominal pain nausea vomiting diarrhea beginning 1 hour ago CTDI: vol (mGy) : 9.57 DLP: (mGycm): 685 Technique: Multiple axial images of the chest, abdomen and pelvis with intravenous contrast, 3.0 mm slice thickness. Images obtained post intravenous injection Isovue 370 60 cc. 2-D sagittal and coronal reconstructions. Low dose protocols were performed. One or more of the following dose reduction techniques were used; automated exposure control, adjustment of the mA and/or KV according to patient size, use of iterative reconstruction technique. Findings: No thoracic aortic aneurysm dilatation or dissection. No pulmonary artery emboli on this non-CT study. No paratracheal tracheobronchial or bronchopulmonary adenopathy No pneumonia or pulmonary edema, no pleural disease No liver lesion or intrahepatic biliary tract dilatation Negative for gallstones. Spleen is not enlarged. No pancreatic or adrenal mass. No renal or ureteral calculi, no hydronephrosis Abdominal aorta normal size Mildly fluid distended small bowel loops. Normal appendix Colonic diverticulosis, no diverticulitis. The colon is fluid-filled and moderately distended, mild colitis pattern No pelvic mass Urinary bladder intact Moderate osteopenia with advanced disc narrowing L5-S1 IMPRESSION: No thoracic aortic aneurysmal dilatation or dissection No pulmonary artery emboli. No pneumonia, pulmonary edema or pleural disease Normal appendix Mildly fluid distended small bowel loops, consider ileus, enteritis such as Crohn's disease Mild colitis pattern No bowel obstruction Colonic diverticulosis, no current diverticulitis
[2025-06-10] MEDS: SODIUM CHLORIDE 0.9% 1000 ML 1,000 ML 999 ML IV ×2 (05:56→05:57)
--- NOTE | 2025-06-10 06:03 | EDNOTE_ITS ---
Emergency Room Addendum Addendum Narrative: 0600: Care assumed from UNA Bahena, the previous shift emergency physician. Past medical, surgical, social and family history reviewed. Vitals and home medications reviewed. I will assume the care of the patient at this time pending CT chest/abdomen/pelvis, delta trop, and final disposition. Please refer to the emergency department record for history and examination from initial visit.?The following addendum documentation note is intended to reflect any pending information, findings, or radiology results not included in the patient?s initial chart. Delta troponin remains unchanged. We reviewed all the results, analysis, and treatment plans. Patient is amenable to discharge. Strict return precautions were outlined. RADIOLOGY ___ Ordering Physician: Kale Bahena PA-C Date of Service: 06/10/25 Procedure(s): CT chest abdomen pelvis w Accession Number(s): [id number] cc: Mehrdad Gomez MD; NO PRIMARY/FAMILY,PHYSICIAN; Kale Bahena PA-C~ Examination: CT chest with intravenous contrast CT abdomen with intravenous contrast CT pelvis with intravenous contrast 2-D coronal and sagittal reconstructions Time of exam: June 10, 2025, 0611 hours, comparison February 18, 2025 INDICATIONS: Onset chest pain abdominal pain nausea vomiting diarrhea beginning 1 hour ago CTDI: vol (mGy) : 9.57 DLP: (mGycm): 685 Technique: Multiple axial images of the chest, abdomen and pelvis with intravenous contrast, 3.0 mm slice thickness. Images obtained post intravenous injection Isovue 370 60 cc. 2-D sagittal and coronal reconstructions. Low dose protocols were performed. One or more of the following dose reduction techniques were used; automated exposure control, adjustment of the mA and/or KV according to patient size, use of iterative reconstruction technique. Findings: No thoracic aortic aneurysm dilatation or dissection. No pulmonary artery emboli on this non-CT study. No paratracheal tracheobronchial or bronchopulmonary adenopathy No pneumonia or pulmonary edema, no pleural disease No liver lesion or intrahepatic biliary tract dilatation Negative for gallstones. Spleen is not enlarged. No pancreatic or adrenal mass. No renal or ureteral calculi, no hydronephrosis Abdominal aorta normal size Mildly fluid distended small bowel loops. Normal appendix Colonic diverticulosis, no diverticulitis. The colon is fluid-filled and moderately distended, mild colitis pattern No pelvic mass Urinary bladder intact Moderate osteopenia with advanced disc narrowing L5-S1 IMPRESSION: No thoracic aortic aneurysmal dilatation or dissection No pulmonary artery emboli. No pneumonia, pulmonary edema or pleural disease Normal appendix Mildly fluid distended small bowel loops, consider ileus, enteritis such as Crohn's disease Mild colitis pattern No bowel obstruction Colonic diverticulosis, no current diverticulitis Dictated By: Mehrdad Gomez MD Signed By: <Electronically signed by Mehrdad Gomez MD in OV>06/10/25 0717 ___
--- NOTE | 2025-06-10 08:14 | PC.NURSE ---
Patient alert and oriented, kyrgyz speaking, patient laying in gurney, no apparent distress noted. Patient call light within reach.
[2025-06-10 08:25] LABS: Troponin I < 0.002 ng/mL (0.0-0.045)
== END 2025-06-10 09:39 | disposition home or self-care (01) ==
PROVIDERS: Physician Assistant; Emergency Provider Emergency Medicine
DX: K52.9 Noninfective gastroenteritis and colitis, unspecified (principal); K63.89 Other specified diseases of intestine; K57.30 Diverticulosis of large intestine without perforation or abscess without bleeding; I10 Essential (primary) hypertension; D72.829 Elevated white blood cell count, unspecified; E78.00 Pure hypercholesterolemia, unspecified
CPT/HCPCS: 36415; 71260; 74177; 76705; 80053; 80307; 81001; 81025; 83605; 83690; 84145; 84484; 85025; 93005; 96360; 96361; 96372; 99285; A4649; J1885; J2270; J7030; Q0162; Q9967

== ENCOUNTER 2025-07-18 09:00 | Emergency (ER) | payer SELFPAY ==
[2025-07-18 10:23] VITALS: BP 120/83; PULSE 75; RESP 18; TEMP 36.8; O2SAT 99; BMI 32.9
--- NOTE | 2025-07-18 10:33 | PD.EDLOWEX ---
Lower Extremity Injury RME/HPI General Chief Complaint: Extremity Injury, Lower Stated Complaint: L KNEE INJURY X 30 MINS AGO Time Seen by Provider: 07/18/25 10:33 Arrival date/time: 07/18/25 09:00 RME / HPI Exam: 54-year-old female with a past medical history of left leg varicose veins, who slipped in the shower just prior to arrival and twisted her left knee is now complaining of left knee pain. Denies any fever, nausea, vomiting, numbness, tingling, weakness, syncope. Related Data Home Medications ?Medication ?Instructions ?Recorded ?Confirmed sitagliptin phosphate 50 1 tab PO BID 06/02/19 05/24/22 mg-metformin 1,000 mg tablet (Janumet) empagliflozin 10 mg tablet 10 mg PO QDAY 05/24/22 05/24/22 (Jardiance) semaglutide 0.25 mg or 0.5 mg (2 0.25 mg subcut QWEEK 05/24/22 05/24/22 mg/1.5 mL) subcutaneous pen injector (Ozempic) Previous Rx's ?Medication ?Instructions ?Recorded meloxicam 7.5 mg tablet 7.5 mg PO QDAY #10 tabs 06/15/23 acetaminophen 300 mg-codeine 30 mg 2 tab PO Q8H PRN pain #20 tabs 02/18/25 tablet cefdinir 300 mg capsule 300 mg PO BID #14 caps 02/18/25 naproxen 500 mg tablet 500 mg PO BID PRN pain #14 tabs 07/18/25 Allergies Allergy/AdvReac Type Severity Reaction Status Date / Time No Known Allergies Allergy Verified 07/18/25 09:02 Past Medical History Past Medical History NEUROLOGIC: Negative Neurological Disorders or Seizures CARDIAC: Positive Hypercholesterolemia and Hypertension; Negative Cardiac Disorders or Congestive Heart Failure RESPIRATORY: Negative Chronic Obstructive Pulmonary Disease (COPD) or Asthma GASTROINTESTINAL: Positive Gastrointestinal Disorders and Diverticulitis GENITOURINARY: Negative Genitourinary Disorders or Renal Disease MUSCULOSKELETAL: Negative Musculoskeletal Disorders ENDOCRINE: Negative Diabetes Mellitus Type 1 or Diabetes Mellitus Type 2 HEMATOLOGIC: Negative Blood Disorders or Sickle Cell Disease OTHER HISTORY: Negative Autoimmune Disease, Blood Transfusions, Anesthesia Reactions, MRSA, Clostridium Difficile or Cancer Social History SMOKING STATUS: Never smoker ED Exam Narrative Physical exam: Constitutional: Vital Signs Reviewed. Well appearing. No acute distress. Not toxic appearing. Head: Normocephalic, atraumatic. Eyes: Conjunctiva clear. ENT: Mucous membranes moist. Neck: Trachea midline. Normal range of motion. No nuchal rigidity. Respiratory: Normal effort. No respiratory distress or accessory muscle use. Neuro: Alert and oriented. Speech normal. No focal gross motor or sensory deficits observed. Skin: Warm, dry, normal color. Psych: Pleasant. Normal affect. Cooperative. Extremity: Left leg with varicose veins. Tenderness to palpation to the medial joint line with a small effusion of her left knee. Relatively painless mid range of motion. No erythema, severe warmth, ecchymosis, crepitus. Compartments remain soft for left lower extremity. Dorsalis pedis pulse remains 2+ regular and rhythm for left lower extremity. Course Quality Measures none Orders Category Date Time Status Apply knee immobilizer NOW Care 07/18/25 14:11 Completed Crutches .NOW Care 07/18/25 14:11 Completed XR femur LT 2V Stat Exams 07/18/25 10:49 Completed XR hip LT w pelvis 2-3V Stat Exams 07/18/25 10:49 Completed XR knee comp LT 4V Stat Exams 07/18/25 10:37 Completed Ketorolac Inj [Toradol Inj] Med 07/18/25 10:37 Discontinued 30 mg IM X1 ONE Reevaluation(s) Reevaluation #1: At the time of reassessment, the patient remains alert and oriented ?3 with GCS 15. Vitals are normal, pain is controlled, and the patient is tolerating oral intake without nausea or vomiting. The patient is agreeable to discharge and verbalizes understanding of the diagnosis, studies, treatment plan, medications (including side effects/precautions), and strict ER return precautions as discussed in the ED. All concerns were addressed, and the patient is comfortable with the plan. Vital Signs Vital signs: Vital Signs Temperature 98.3 F 07/18/25 10:23 Pulse Rate 75 07/18/25 10:23 Respiratory Rate 18 07/18/25 10:23 Blood Pressure 120/83 07/18/25 10:23 Pulse Oximetry (%) 99 07/18/25 10:23 Oxygen Delivery Method Room Air 07/18/25 10:23 Extremity Injury, Lower MDM Narrative MDM Narrative:: MDM: Concern for internal knee derangement resulting in effusion from sprain versus strain versus occult fracture or dislocation No infectious etiology and low suspicion for septic arthritis given lack of circumferential erythema, heat, irritable joint as patient has a fairly good mid range motion but is painless Extremity remains distally neurovascular intact with soft compartments X-ray without gross fracture or bony malalignment Plan for RICE therapy, new mobilizer, crutches weightbearing as tolerated, pain and nausea management as needed f/u with pmd and ortho in 1-2 days, strict ER return precautions Patient data External records reviewed:: [facility] previous records Clinical information provided by:: patient Social determinants that could affect healthcare access:: none Patient has the following chronic illnesses:: As noted How is presenting disease/condition affected by chronic disease/condition?: uneffected by Evaluation data The following diagnostics were reviewed and interpreted by me:: radiology exam(s) Lab and/or radiology exams considered but not ordered:: Additional Labs and radiology considered, but not ordered as they were not clinically indicated at this time. Interpretation Summary: X-ray with small effusion of the knee however remainder of x-rays without gross fracture or dislocation Medications / Prescriptions Medications or Prescriptions considered but not ordered:: I considered prescription management (both outpatient prescriptions AND drug treatment in the ER) and decided that this was necessary and was prescribed as charted. Medication administrations:: Medication Administration History Discontinued Medications Ketorolac Tromethamine (Ketorolac Inj 30 Mg/Ml Vial) 30 mg IM X1 ONE Stop: 07/18/25 10:38 Last Admin: 07/18/25 10:44 Dose: 30 mg Documented By: As noted Consultations Consultation(s) initiated? (list below): No Diagnosis Extremity Injury, Lower Differential Diagnosis: acute internal derangement of knee, fracture of femur and other Most likely diagnosis given after review of the tests above:: Internal derangement of the knee Admission Indicated Admission indicated?: not indicated Admission Request Was there a request for admission?: No Disposition Plan Disposition Plan: Discharge Discharge Attestation Discharge Attestation: The patient and all family members were given an opportunity to ask questions and understood the discharge instructions. Discharge instructions specifically effects, indications for sooner follow up or return to the emergency department, and the expected course of current diagnosis. Patient condition: Stable Discharge Plan Plan Patient Disposition: HOME (Self Care) Patient condition on transfer: Stable Prescriptions/Referrals Prescriptions/Med Rec: New naproxen 500 mg tablet 500 mg PO BID PRN (Reason: pain) Qty: 14 0RF Rx Instructions: take wtih food and 8 oz of water No Action Janumet 50-1,000 mg Tablet 1 tab PO BID Jardiance 10 mg Tablet 10 mg PO QDAY Ozempic 0.25 mg or 0.5 mg(2 mg/1.5 mL) Pen Injector 0.25 mg SUBCUT QWEEK Rx Instructions: for 4 doses meloxicam 7.5 mg tablet 7.5 mg PO QDAY Qty: 10 0RF acetaminophen-codeine 300-30 mg tablet 2 tab PO Q8H MDD 6 PRN (Reason: pain) Qty: 20 0RF cefdinir 300 mg capsule 300 mg PO BID Qty: 14 0RF Referrals: Refugio Padgett MD [Primary Care Provider, Family Practice] - In 1 week Problem List Clinical Impression: Effusion of knee Patient/Caregiver Discharge Instructions Education Materials: ED Knee Effusion Additional Instructions: Follow up with your primary medical doctor and an orthopedic doctor within 24 hours. Return to the Emergency Room immediately for any new, worsening, continuing symptoms or any concerns at all. Return to the Emergency Room within 24 hours if you are unable to follow up with your primary medical doctor and an orthopedic doctor within 24 hours. Print Language: French Stand Alone Forms: Lida Award Info., Patient Portal Info Letter PA/JOSE G Supervising Physician UNA/JOSE G Supervising Physician: Dr. Bautista
--- NOTE | 2025-07-18 10:37 | XR_ITS ---
Examination: Knee, left, 3 views Technique: Knee AP, lateral, oblique 3 views Date and time of exam: July 18, 2025, 1040 hours INDICATIONS: Patient fell down today with injury to the knee, knee pain. FINDINGS: No fracture or dislocation No true lateral view Small to moderate knee effusion IMPRESSION: No acute fracture
[2025-07-18] MEDS: KETOROLAC INJ 30 MG/ML VIAL IM (10:44)
--- NOTE | 2025-07-18 10:49 | XR_ITS ---
Examination: Left hip AP, lateral, AP pelvis 3 views Technique: Hip AP lateral, AP pelvis, 3 views Exam date and time: July 18, 2025, at 10:40 a.m. INDICATIONS: Patient fell down in the shower today with injury of the left hip, left hip pain. FINDINGS: No hip fracture or hip dislocation Right hip bones of the pelvis intact IMPRESSION: No acute hip or pelvic fracture
--- NOTE | 2025-07-18 10:49 | XR_ITS ---
EXAMINATION: Left femur 2 views TECHNIQUE: AP lateral left femur 2 views Date and time: July 18, 2025, 10:56 a.m. INDICATIONS: Patient fell down in the shower today with injury to the leg, femur pain FINDINGS: No hip fracture or hip dislocation Shaft of the femur are intact IMPRESSION: No acute fracture
== END 2025-07-18 16:50 | disposition home or self-care (01) ==
PROVIDERS: Emergency Provider Physician Assistant; PCP Family Medicine
DX: S89.92XA Unspecified injury of left lower leg, initial encounter (principal); S79.922A Unspecified injury of left thigh, initial encounter; S79.912A Unspecified injury of left hip, initial encounter; M25.462 Effusion, left knee; X50.1XXA Overexertion from prolonged static or awkward postures, initial encounter; Y93.E1 Activity, personal bathing and showering
CPT/HCPCS: 73502; 73552; 73562; 73564; 96372; 99283; J1885